=== PATIENT | female | born 1940 | race Caucasian/White ===

== ENCOUNTER 2017-05-04 09:11 | Emergency (ER) | payer BC, MEDICARE, SELFPAY ==
[2017-05-04 09:30] VITALS: BP 185/67; PULSE 69; RESP 20; TEMP 37; O2SAT 95; BMI 38.3
--- NOTE | 2017-05-04 09:37 | HMH.EDUTC ---
[facility] [place] Clinical Impression: Proteinuria Qualifiers: Proteinuria type: other Qualified Code(s): R80.8 - Other proteinuria Hematuria Qualifiers: Hematuria type: other microscopic Qualified Code(s): R31.29 - Other microscopic hematuria; R31.2 - Other microscopic hematuria Disposition: Still a Patient Condition on Discharge: Good Referrals: [facility] [Primary Care Provider] - Gloria Leo APRN [Nurse Practitioner] - Time of Disposition: 09:52 (Sent to ER for further evaluation) Medical Decision Making - Yordan Inquiry Pt receiving controlled substance: No Vital Signs: 05/04/17 09:30 Temperature 98.6 F Temperature Source Temporal Artery Scan Pulse Rate [Right Radial] 69 Respiratory Rate 20 Blood Pressure [Right Arm] 185/67 Blood Pressure Mean [Right Arm] 106 Blood Pressure Source [Right Arm] Automatic Cuff Blood Pressure Position [Right Arm] Sitting 02 Sat by Pulse Oximetry 95 Oxygen Delivery Method Room Air - Lab Data Lab results reviewed: Yes: I reviewed the patient's lab results. Lab Results 05/04/17 09:37: Urine Color Dark yellow, Urine Appearance Clear, Urine pH 7.0, Ur Specific [place] 1.020, Urine Protein 1+, Urine Glucose (UA) Negative, Urine Ketones Negative, Urine Blood Trace, Urine Nitrate Negative, Urine Bilirubin Negative, Urine Urobilinogen 0.2, Ur Leukocyte Esterase Negative [facility] [place] - General Stated complaint: Back Pain Time Seen by Provider: 05/04/17 09:30 Mode of Arrival: Family Vehicle Source of Information: Patient Limitations: No Limitations Description of Symptoms (Recalled from Triage Doc. by RN): PT STATES HER RIGHT LOWER BACK HAS BEEN HURTING SINCE LAST WEEK BUT THE PAIN IS WORSE NOW. PT DENIES INJURY AND STATES SHE IS NOT HAVING ANY PROBLEMS URINATING. HEENT Symptoms (Recalled from RN notes): No Resp Symptoms (Recalled from RN notes): No Skin Symptoms (Recalled from RN notes): No MS Symptoms (Recalled from RN notes): (RIGHT LOWER BACK PAIN) Functional Status (Recalled from RN notes): NA - History of Present Illness Provider Complaint: Patient states she began having right sided back pain on 04/28/17. She was at work when pain occurred. No injury or inciting event. She states pain has gotten progressively worse throughout the week. Last night she could not get comfortable and could not sleep. Got up multiple times to urinate, but only small volumes. No dysuria. No fever. Some nausea yesterday, no vomiting. No history of stones. She is diabetic, takes insulin BID. Patient denies rash. Onset (ago): day(s) (6) Location: back Radiation: flank Severity: moderate Consistency: constant Relieving factors: none Associated symptoms: nausea/vomiting Treatments prior to arrival: none - Related Data Home Medications Medication Instructions Recorded Confirmed Carvedilol [Carvedilol 25mg Tab] 25 mg PO BID 05/04/17 05/04/17 Insulin Lispro Protamin/Lispro 45 units SQ BID 05/04/17 05/04/17 [HumaLOG Mix 75/25 3mL flexpen] Lisinopril [Lisinopril 10mg Tab] 10 mg PO DAILY 05/04/17 05/04/17 PHENobarbital [Phenobarbital] 64.8 mg PO DAILY 05/04/17 05/04/17 Sitagliptin Phosphate [Januvia] 100 mg PO DAILY 05/04/17 05/04/17 Allergies Allergy/AdvReac Type Severity Reaction Status Date / Time metformin Allergy Verified 05/04/17 09:39 nickel Allergy Verified 05/04/17 09:39 - Worker's Comp Is this a Worker's Comp case?: No [facility] History I have reviewed the patient's past medical history: Yes Medical History: Reports:: Diabetes Mellitus Type 2 Denies:: Cancer, Diabetes Mellitus Type 1, MRSA Amputation: No Fractures: No - Social History Smoking Status: Never smoker Alcohol Intake: never - Psychiatric History Expresses thoughts of harming self/others: None Suicide Plan Description: No Plan ROS Obtained: Yes All systems reviewed & no additional complaints - Constitutional Constitutional: Denies fever(s), Denies malaise - Cardiovascu
[2017-05-04 09:39] LABS: Apearance,Urine Clear (Clear); Color,Urine Dark Yellow (Yellow)
[2017-05-04 09:40] LABS: Bilirubin,Urine Negative (Negative); Blood, Urine Trace (Negative); Glucose,Urine (UA) Negative (Negative); Ketones,Urine Negative (Negative); Protein,Urine 1+ (Negative)
[2017-05-04 09:41] LABS: UTC Leukocyte Esterase,Urine Negative (Negative); UTC Nitrate,Urine Negative (Negative); Urobilinogen,Urine 0.2 EU/dl (0.2)
--- NOTE | 2017-05-04 09:46 | ED_ITS ---
[facility] [place]ression: Proteinuria Qualifiers: Proteinuria type: other Qualified Code(s): R80.8 - Other proteinuria Hematuria Qualifiers: Hematuria type: other microscopic Qualified Code(s): R31.29 - Other microscopic hematuria; R31.2 - Other microscopic hematuria Disposition: Still a Patient Condition on Discharge: Good Referrals: [facility] [Primary Care Provider] - Gloria Leo APRN [Nurse Practitioner] - Time of Disposition: 09:52 (Sent to ER for further evaluation) Medical Decision Making - Yordan Inquiry Pt receiving controlled substance: No Vital Signs: 05/04/17 09:30 Temperature 98.6 F Temperature Source Temporal Artery Scan Pulse Rate [Right Radial] 69 Respiratory Rate 20 Blood Pressure [Right Arm] 185/67 Blood Pressure Mean [Right Arm] 106 Blood Pressure Source [Right Arm] Automatic Cuff Blood Pressure Position [Right Arm] Sitting 02 Sat by Pulse Oximetry 95 Oxygen Delivery Method Room Air - Lab Data Lab results reviewed: Yes: I reviewed the patient's lab results. Lab Results 05/04/17 09:37: Urine Color Dark yellow, Urine Appearance Clear, Urine pH 7.0, Ur Specific [place] 1.020, Urine Protein 1+, Urine Glucose (UA) Negative, Urine Ketones Negative, Urine Blood Trace, Urine Nitrate Negative, Urine Bilirubin Negative, Urine Urobilinogen 0.2, Ur Leukocyte Esterase Negative [facility] [place] General Stated complaint: Back Pain Time Seen by Provider: 05/04/17 09:30 Mode of Arrival: Family Vehicle Source of Information: Patient Limitations: No Limitations Description of Symptoms (Recalled from Triage Doc. by RN): PT STATES HER RIGHT LOWER BACK HAS BEEN HURTING SINCE LAST WEEK BUT THE PAIN IS WORSE NOW. PT DENIES INJURY AND STATES SHE IS NOT HAVING ANY PROBLEMS URINATING. HEENT Symptoms (Recalled from RN notes): No Resp Symptoms (Recalled from RN notes): No Skin Symptoms (Recalled from RN notes): No MS Symptoms (Recalled from RN notes): (RIGHT LOWER BACK PAIN) Functional Status (Recalled from RN notes): NA - History of Present Illness Provider Complaint: Patient states she began having right sided back pain on 02/03. She was at work when pain occurred. No injury or inciting event. She states pain has gotten progressively worse throughout the week. Last night she could not get comfortable and could not sleep. Got up multiple times to urinate , but only small volumes. No dysuria. No fever. Some nausea yesterday, no vomiting. No history of stones. She is diabetic, takes insulin BID. Patient denies rash. Onset (ago): day(s) (6) Location: back Radiation: flank Severity: moderate Consistency: constant Relieving factors: none Associated symptoms: nausea/vomiting Treatments prior to arrival: none - Related Data Home Medications Medication Instructions Recorded Confirmed Carvedilol [Carvedilol 25mg Tab] 25 mg PO BID 05/04/17 05/04/17 Insulin Lispro Protamin/Lispro 45 units SQ BID 05/04/17 05/04/17 [HumaLOG Mix 75/25 3mL flexpen] Lisinopril [Lisinopril 10mg Tab] 10 mg PO DAILY 05/04/17 05/04/17 PHENobarbital [Phenobarbital] 64.8 mg PO DAILY 05/04/17 05/04/17 Sitagliptin Phosphate [Januvia] 100 mg PO DAILY 05/04/17 05/04/17 Allergies Allergy/AdvReac Type Severity Reaction Status Date / Time metformin Allergy Verified 05/04/17 09:39 nickel Allergy Verified 05/04/17 09:39
[2017-05-04 09:54] VITALS: BP 200/109; PULSE 72; RESP 18; TEMP 36.4; O2SAT 94; BMI 38.3
--- NOTE | 2017-05-04 10:04 | CT_ITS ---
CT abdomen pelvis wo con COMPARISON: CT scan abdomen pelvis 05/30/2015 HISTORY: Right flank pain TECHNIQUE: Multiple axial scans obtained from hemidiaphragms the pelvic floor and were performed without IV or oral contrast. Sagittal and coronal reformats were evaluated as well. FINDINGS: The lower lung [place] are clear. The liver spleen stomach pancreas and gallbladder appear grossly normal. 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 The left adrenal gland is normal. The kidneys are normal size and there are no calculi and is no obstructive uropathy. There is an extrarenal pelvis of the left kidney which was noted previously. There is a small umbilical hernia containing fat only. The small bowel appears normal. The appendix is normal caliber and retrocecal in location. There is moderate amount stool in the cecum and ascending colon. There is mild diverticulosis of the upper ascending colon and hepatic flexure with no obvious evidence of diverticulitis. There is diffuse diverticulosis of the sigmoid colon without evidence of diverticulitis. The uterus is normal in size and in the midline. Urinary bladder is partially decompressed. Is no free fluid in the pelvis. There are mild degenerative changes of lumbar spine. There is prominent arteriosclerotic calcification of the abdominal aorta but is no aneurysm. IMPRESSION: No acute abdominal or pelvic pathology identified, stable fatty right adrenal mass as noted. Moderate diffuse diverticulosis of the sigmoid colon which was noted previously without evidence of diverticulitis in addition to moderate diverticulosis of the hepatic flexure.
--- NOTE | 2017-05-04 10:06 | HMH.EDGENADL ---
ED Disposition Clinical Impression: Hypertension, Diabetes, Diverticulitis Proteinuria Qualifiers: Proteinuria type: other Qualified Code(s): R80.8 - Other proteinuria Hematuria Qualifiers: Hematuria type: other microscopic Qualified Code(s): R31.29 - Other microscopic hematuria Disposition: Still a Patient Condition on Discharge: Fair Additional Instructions: 1- soft diet , more green leafy vegetable diet. 2- diabetic diet and stricter diabetes control. 3- start abx as soonas possible. 4- observe for fever, vomiting or worse pain to return. 5- follow up with Dr. Steiner;s office in 1-2 days. Prescriptions: Ciprofloxacin HCl [Cipro 250mg Tab] 250 mg PO BID #14 tab metroNIDAZOLE [Flagyl] 500 mg PO Q8 1 Days #21 tab Referrals: [facility] [Primary Care Provider] - Gloria Leo APRN [Nurse Practitioner] - - Critical Care Critical Care Time: No Attestation: On 05/04/17, the high probability of a clinically significant, sudden or life threatening deterioration of the following system(s) required my full and direct attention, intervention and personal management. The time I documented below is in addition to time spent performing reported procedures but includes the following listed in this critical care notation. Medical Decision Making - Yordan Inquiry Pt receiving controlled substance: No Yordan was queried for this patient: No Vital Signs: 05/04/17 09:30 05/04/17 09:54 Temperature 98.6 F 97.6 F Temperature Source Temporal Artery Scan Oral Pulse Rate [Right Radial] 69 72 Respiratory Rate 20 18 Blood Pressure [Right Arm] 185/67 200/109 Blood Pressure Mean [Right Arm] 106 139 Blood Pressure Source [Right Arm] Automatic Cuff Automatic Cuff Blood Pressure Position [Right Arm] Sitting Sitting 02 Sat by Pulse Oximetry 95 94 L Oxygen Delivery Method Room Air Room Air - Lab Data Lab Results 05/04/17 09:34: Urine Color Yellow, Urine Appearance Clear, Urine pH 7.0, Ur Specific [place] 1.020, Urine Protein Trace, Urine Glucose (UA) Negative, Urine Ketones Negative, Urine Blood Trace-l, Urine Nitrate Negative, Urine Bilirubin Negative, Urine Urobilinogen 0.2, Ur Leukocyte Esterase Negative, Urine WBC 3-5, Ur Squamous Epith Cells 5-10, Urine Bacteria 3+, Urine Mucus 2+ 05/04/17 09:37: Urine Color Dark yellow, Urine Appearance Clear, Urine pH 7.0, Ur Specific [place] 1.020, Urine Protein 1+, Urine Glucose (UA) Negative, Urine Ketones Negative, Urine Blood Trace, Urine Nitrate Negative, Urine Bilirubin Negative, Urine Urobilinogen 0.2, Ur Leukocyte Esterase Negative 05/04/17 10:15: WBC 8.5, RBC 4.83, Hgb 13.5, Hct 41.9, MCV 86.9, MCH 28.0, MCHC 32.2, RDW 13.6, Plt Count 130 L, MPV 8.3, Neut % (Auto) 66.7, Lymph % (Auto) 16.2, [place] % (Auto) 16.5 H, Eos % (Auto) 0.5, Baso % (Auto) 0.1, Neut # (Auto) 5.7, Lymph # (Auto) 1.4, [place] # (Auto) 1.4 H, Eos # (Auto) 0.0, Baso # (Auto) 0.0 05/04/17 10:15: Sodium 138, Potassium 4.1, Chloride 102, Carbon Dioxide 30, Anion Gap 10.1, BUN 8, Creatinine 0.72, Estimated Creat Clear 84, Estimated GFR 79, Est GFR ( Amer) 95, Glucose 237 H, Calcium 8.6, Total Bilirubin 0.3, AST 6 L, ALT 17, Alkaline Phosphatase 124 H, Total Protein 7.7, Albumin 3.8, Globulin 3.9 H, Albumin/Globulin Ratio 1.0 L Result diagrams: 05/04/17 10:15 05/04/17 10:15 Orders (Tests/Meds): ED MEDICATIONS Generic Name Dose Route Start Last Admin Trade Name Freq PRN Reason Stop Dose Admin Metronidazole 100 mls @ 100 mls/hr 05/04/17 11:58 05/04/17 12:06 Flagyl 500mg/100ml Ivpb IV 05/04/17 12:57 100 mls/hr ONCE ONE Administration Protocol Discontinued Medications Generic Name Dose Route Start Last Admin Trade Name Freq PRN Reason Stop Dose Admin Sodium Chloride 1,000 mls @ 999 mls/hr 05/04/17 10:15 05/04/17 10:19 Sod Chlor 0.9% 1000ml Bag IV 05/04/17 11:15 999 mls/hr .Q1H1M ARTEMIO Administration Ketorolac Tromethamine 30 mg 05/04/17 12:01 0
--- NOTE | 2017-05-04 10:09 | ED_ITS ---
ED Disposition Clinical Impression: Hypertension, Diabetes, Diverticulitis Proteinuria Qualifiers: Proteinuria type: other Qualified Code(s): R80.8 - Other proteinuria Hematuria Qualifiers: Hematuria type: other microscopic Qualified Code(s): R31.29 - Other microscopic hematuria Disposition: Still a Patient Condition on Discharge: Fair Additional Instructions: 1- soft diet , more green leafy vegetable diet. 2- diabetic diet and stricter diabetes control. 3- start abx as soonas possible. 4- observe for fever, vomiting or worse pain to return. 5- follow up with Dr. Steiner;s office in 1-2 days. Prescriptions: Ciprofloxacin HCl [Cipro 250mg Tab] 250 mg PO BID #14 tab metroNIDAZOLE [Flagyl] 500 mg PO Q8 1 Days #21 tab Referrals: [facility] [Primary Care Provider] - Gloria Leo APRN [Nurse Practitioner] - - Critical Care Critical Care Time: No Attestation: On 05/04/17, the high probability of a clinically significant, sudden or life threatening deterioration of the following system(s) required my full and direct attention, intervention and personal management. The time I documented below is in addition to time spent performing reported procedures but includes the following listed in this critical care notation. Medical Decision Making - Yordan Inquiry Pt receiving controlled substance: No Yordan was queried for this patient: No Vital Signs: 05/04/17 09:30 05/04/17 09:54 Temperature 98.6 F 97.6 F Temperature Source Temporal Artery Scan Oral Pulse Rate [Right Radial] 69 72 Respiratory Rate 20 18 Blood Pressure [Right Arm] 185/67 200/109 Blood Pressure Mean [Right Arm] 106 139 Blood Pressure Source [Right Arm] Automatic Cuff Automatic Cuff Blood Pressure Position [Right Arm] Sitting Sitting 02 Sat by Pulse Oximetry 95 94 L Oxygen Delivery Method Room Air Room Air - Lab Data Lab Results 05/04/17 09:34: Urine Color Yellow, Urine Appearance Clear, Urine pH 7.0, Ur Specific [place] 1.020, Urine Protein Trace, Urine Glucose (UA) Negative, Urine Ketones Negative, Urine Blood Trace-l, Urine Nitrate Negative, Urine Bilirubin Negative, Urine Urobilinogen 0.2, Ur Leukocyte Esterase Negative, Urine WBC 3-5 , Ur Squamous Epith Cells 5-10, Urine Bacteria 3+, Urine Mucus 2+ 05/04/17 09:37: Urine Color Dark yellow, Urine Appearance Clear, Urine pH 7.0, Ur Specific [place] 1.020, Urine Protein 1+, Urine Glucose (UA) Negative, Urine Ketones Negative, Urine Blood Trace, Urine Nitrate Negative, Urine Bilirubin Negative, Urine Urobilinogen 0.2, Ur Leukocyte Esterase Negative 05/04/17 10:15: WBC 8.5, RBC 4.83, Hgb 13.5, Hct 41.9, MCV 86.9, MCH 28.0, MCHC 32.2, RDW 13.6, Plt Count 130 L, MPV 8.3, Neut % (Auto) 66.7, Lymph % (Auto) 16.2, [place] % (Auto) 16.5 H, Eos % (Auto) 0.5, Baso % (Auto) 0.1, Neut # (Auto) 5.7, Lymph # (Auto) 1.4, [place] # (Auto) 1.4 H, Eos # (Auto) 0.0, Baso # (Auto) 0.0 05/04/17 10:15: Sodium 138, Potassium 4.1, Chloride 102, Carbon Dioxide 30, Anion Gap 10.1, BUN 8, Creatinine 0.72, Estimated Creat Clear 84, Estimated GFR 79, Est GFR ( Amer) 95, Glucose 237 H, Calcium 8.6, Total Bilirubin 0.3, AST 6 L, ALT 17, Alkaline Phosphatase 124 H, Total Protein 7.7, Albumin 3.8, Globulin 3.9 H, Albumin/Globulin Ratio 1.0 L Result diagrams: 05/04/17 10:15 05/04/17 10:15 Orders (Tests/Meds): ED MEDICATIONS Generic Name Dose Route Start Last Admin Trade Name Josefina PRN Reas
[2017-05-04 10:12] LABS: Microscopic, Urine URINE MICROSCOPIC (MICROSCOPIC)
[2017-05-04 10:13] LABS: Appearance,Urine CLEAR (Clear); Bilirubin,Urine Negative (Negative); Blood, Urine TRACE-L (Negative); Color,Urine YELLOW (Yellow); Glucose,Urine (UA) Negative (Negative); Ketones,Urine Negative (Negative); Leukocyte Esterase,Urine Negative (Negative); Nitrate,Urine Negative (Negative); Protein,Urine TRACE (Negative); Urobilinogen,Urine 0.2 EU/dl (0.2)
[2017-05-04 10:21] LABS: Bacteria,Urine 3+ /lpf; Mucus,Urine 2+ /lpf
[2017-05-04 10:25] LABS: Basophils % 0.1 % (0.1-2.0); Eosinophils % 0.5 % (0.1-12.0); Hematocrit 41.9 % (37.0-47.0); Hemoglobin 13.5 g/dL (12.2-16.2); Lymphocytes # 1.4 K/mm3 (0.7-4.5); Lymphocytes % 16.2 K/mm3 (10-50); Mean Corpuscular HGB Conc 32.2 g/dL (31.8-35.4); Mean Corpuscular Volume 86.9 fl (81-99); Mean Platelet Volume 8.3 fl (7.4-10.4); Monocytes # 1.4 K/mm3 (0.1-1.0); Monocytes % 16.5 % (1.7-9.3); Neutrophils # 5.7 K/mm3 (1.8-7.8); Neutrophils % 66.7 % (37.0-80.0); Platelet Count 130 K/mm3 (142-424); Red Blood Count 4.83 M/mm3 (4.20-5.40); Red Cell Distribution Width 13.6 % (11.5-17.5); White Blood Count 8.5 K/mm3 (4.8-10.8)
[2017-05-04 10:35] LABS: Alanine Aminotransferase 17 U/L (12-78); Albumin Level 3.8 gm/dL (3.4-5.0); Alkaline Phosphatase 124 U/L (46-116); Anion Gap 10.1 mEq/L (5-15); Aspartate Amino Transferase 6 U/L (15-37); Bilirubin,Total 0.3 mg/dL (0.2-1.0); Blood Urea Nitrogen 8 mg/dL (7-18); Calcium 8.6 mg/dL (8.5-10.1); Carbon Dioxide 30 mmol/L (21.0-32.0); Chloride 102 mmol/L (98-107); Creatinine Clearance Estimated 84 mL/min (0-300); Creatinine,Serum 0.72 mg/dL (0.55-1.02); Estimated Glomerular Filt Rate 79 ml/min (>60); GFR (African American) 95 ML/MIN (>60); Globulin 3.9 gm/dl (1.3-3.2); Glucose 237 mg/dL (74-106); Potassium 4.1 mmoL/L (3.5-5.1); Sodium 138 mmol/L (136-145); Total Protein,Serum 7.7 gm/dL (6.4-8.2)
[2017-05-04 12:10] VITALS: BP 182/66; PULSE 64; RESP 18; O2SAT 95
[2017-05-04 14:16] VITALS: BP 182/92; PULSE 68; RESP 20; TEMP 36.4; O2SAT 93
== END 2017-05-04 14:16 | disposition home or self-care (01) ==
LOC: UTC 09:22 → ER 09:53
PROVIDERS: Physician Assistant; Emergency Provider Emergency Medicine; Family Provider Internal Medicine Adolescent Medicine; PCP Internal Medicine Adolescent Medicine
DX: K57.53 Diverticulitis of both small and large intestine without perforation or abscess with bleeding (principal); R80.8 Other proteinuria; R31.29 Other microscopic hematuria; E11.65 Type 2 diabetes mellitus with hyperglycemia; Z79.4 Long term (current) use of insulin; I10 Essential (primary) hypertension; Z88.8 Allergy status to other drugs, medicaments and biological substances
CPT/HCPCS: 74176; 80053; 81001; 81003; 85025; 87086; 96365; 96367; 96375; 99284; J2405

== ENCOUNTER → 2022-02-08 13:43 | Outpatient (CLI) | payer BC, MEDICARE, SELFPAY ==
[2022-02-08 14:38] LABS: Chloride 105 mmol/L (98-107)
[2022-02-08 14:39] LABS: Potassium 4.1 mmoL/L (3.5-5.1); Sodium 138 mmol/L (136-145)
[2022-02-08 14:41] LABS: Blood Urea Nitrogen 12 mg/dl (7-17); Estimated Glomerular Filt Rate 69 ml/min (>60); GFR (African American) 83 ML/MIN (>60)
[2022-02-08 14:42] LABS: Anion Gap 9.1 mEq/L (5-15); Calcium 8.8 mg/dl (8.4-10.2); Carbon Dioxide 28 mmol/L (22.0-30.0)
[2022-02-08 14:48] LABS: Basophils % 0.4 % (0.1-2.0); Eosinophils # 0.1 K/mm3 (0.0-0.4); Eosinophils % 0.9 % (0.1-12.0); Hematocrit 27.9 % (37.0-47.0); Lymphocytes # 1.4 K/mm3 (0.7-4.5); Lymphocytes % 17.3 % (10-50); Mean Corpuscular HGB Conc 32.2 g/dL (31.8-35.4); Mean Corpuscular Hemoglobin 28.3 pg (27.0-31.2); Mean Platelet Volume 8.7 fl (7.4-10.4); Monocytes # 2.7 K/mm3 (0.1-1.0); Monocytes % 35.2 % (1.7-9.3); Neutrophils # 3.6 K/mm3 (1.8-7.8); Neutrophils % 46.3 % (37.0-80.0); Platelet Count 142 K/mm3 (142-424); Red Blood Count 3.18 M/mm3 (4.20-5.40); Red Cell Distribution Width 15.9 % (11.5-17.5); White Blood Count 7.8 K/mm3 (4.8-10.8)
[2022-02-08 14:51] LABS: MANUAL DIFFERENTIAL MANUAL DIFFERENTIAL (MANUAL DIFF)
[2022-02-08 15:00] LABS: Glucose 43 mg/dl (74-100)
[2022-02-08 15:28] LABS: Eosinophils % 1 % (0-3); Lymphocytes % 21 % (10-50); Monocytes % 24 % (2-9); Neutrophils % 54 % (42-76); Total Cells Counted 100
[2022-02-08 15:29] LABS: Platelet Estimate Slight Decrease; RBC Morphology Normal
== END ==
PROVIDERS: PCP Internal Medicine Adolescent Medicine; Visit Provider Nurse Practitioner Family
DX: R60.0 Localized edema (principal); R41.0 Disorientation, unspecified; I10 Essential (primary) hypertension
CPT/HCPCS: 80048; 85007; 85025

== ENCOUNTER → 2022-05-09 10:34 | Outpatient (CLI) | payer BC, MEDICARE, SELFPAY ==
[2022-05-09 11:06] LABS: Basophils % 0.5 % (0.1-2.0); Eosinophils # 0.1 K/mm3 (0.0-0.4); Eosinophils % 1.4 % (0.1-12.0); Hematocrit 34.1 % (37.0-47.0); Hemoglobin 10.3 g/dL (12.2-16.2); Lymphocytes # 0.9 K/mm3 (0.7-4.5); Mean Corpuscular HGB Conc 30.3 g/dL (31.8-35.4); Mean Corpuscular Volume 92.4 fl (81-99); Mean Platelet Volume 8.4 fl (7.4-10.4); Monocytes # 1.9 K/mm3 (0.1-1.0); Monocytes % 28.5 % (1.7-9.3); Neutrophils # 3.7 K/mm3 (1.8-7.8); Neutrophils % 55.5 % (37.0-80.0); Platelet Count 140 K/mm3 (142-424); Red Blood Count 3.69 M/mm3 (4.20-5.40); Red Cell Distribution Width 15.7 % (11.5-17.5); White Blood Count 6.6 K/mm3 (4.8-10.8)
[2022-05-09 11:10] LABS: MANUAL DIFFERENTIAL MANUAL DIFFERENTIAL (MANUAL DIFF)
[2022-05-09 11:45] LABS: Lymphocytes % 25 % (10-50); Monocytes % 11 % (2-9); Neutrophils % 64 % (42-76); Platelet Estimate Slight Decrease; RBC Morphology Normal; Total Cells Counted 100
[2022-05-09 12:07] LABS: Alanine Aminotransferase 13 U/L (12-78); Albumin/Globulin Ratio 1.5 (1.1-1.8); Alkaline Phosphatase 108 U/L (38-126); Anion Gap 8.3 mEq/L (5-15); Aspartate Amino Transferase 19 U/L (14-36); Bilirubin,Total 0.5 mg/dl (0.2-1.3); Blood Urea Nitrogen 15 mg/dl (7-17); Calcium 8.4 mg/dl (8.4-10.2); Carbon Dioxide 37 mmol/L (22.0-30.0); Chloride 100 mmol/L (98-107); Estimated Glomerular Filt Rate 96 ml/min (>60); GFR (African American) 116 ML/MIN (>60); Globulin 2.6 g/dL (1.3-3.2); Glucose 75 mg/dl (74-100); Potassium 4.3 mmoL/L (3.5-5.1); Sodium 141 mmol/L (136-145); Total Protein,Serum 6.6 g/dl (6.3-8.2)
[2022-05-09 12:30] LABS: Hemoglobin A1C 4.6 % (4.0-6.0)
== END ==
PROVIDERS: PCP Nurse Practitioner Family; Visit Provider Nurse Practitioner Family
DX: I10 Essential (primary) hypertension (principal); E11.9 Type 2 diabetes mellitus without complications; Z79.4 Long term (current) use of insulin
CPT/HCPCS: 80053; 80184; 83036; 85007; 85025

== ENCOUNTER 2023-02-04 20:13 | Emergency (ER) | payer MEDICARE, BC, SELFPAY ==
--- NOTE | 2023-02-04 | ECG_ITS ---
APPROVED REPORT Exam: Resting ECG HR:67 bpm ECG Measurements Heart Rate 67 AXES QRSd 162 QRS 261 QT 407 T 79 QTc 422 Conclusion ATRIAL FIBRILLATION RIGHT AXIS DEVIATION [QRS AXIS > 100] RIGHT BUNDLE BRANCH BLOCK [120+ ms QRS DURATION, UPRIGHT V1, 40+ ms S IN I/aVL/V4/V5/V6] MODERATE VOLTAGE CRITERIA FOR LVH, CONSIDER NORMAL VARIANT [MEETS CRITERIA IN ONE OF: R(aVL), S(V1), R(V5), R(V5/V6)+S(V1)] POSSIBLE SEPTAL MYOCARDIAL INFARCTION , OF INDETERMINATE AGE [30 ms Q WAVE IN V1/V2] ABNORMAL ECG UNCONFIRMED REPORT Electronically signed by : Rafita Steiner MD 02/05/2023 18:40:11
[2023-02-04 20:13] VITALS: BP 0/0; PULSE 0; RESP 12; O2SAT 100; BMI 45.1
[2023-02-04 20:15] VITALS: BMI 45.1
--- NOTE | 2023-02-04 20:29 | XR_ITS ---
PROCEDURE INFORMATION: Exam: XR Chest Exam date and time: 02/04/2023 8:27 PM Age: 82 years old Clinical indication: Device placement; Ett placement (vent status); Additional info: Post code- ett, ng placement TECHNIQUE: Imaging protocol: Radiologic exam of the chest. Views: 1 view. COMPARISON: CR [id number] XR ribs RT min 3V w CXR1V 12/09/2017 7:31 PM FINDINGS: Tubes, catheters and devices: ET tube is below the thoracic inlet and above the mu. NG tube is in the stomach. Lungs: No acute cardiopulmonary findings. Pleural spaces: Unremarkable. No pleural effusion. No pneumothorax. Heart/Mediastinum: Unremarkable. No cardiomegaly. Bones/joints: Unremarkable. IMPRESSION: 1. ET tube is below the thoracic inlet and above the mu. 2. No acute cardiopulmonary findings.
[2023-02-04 20:34] LABS: ABG Base Excess -30.3 mmol/L (-2.4-2.3); ABG HCO3 3.9 mmhg (22.0-26.0); ABG Oxygen Saturation 99 % (90-100); ABG PCO2 24.1 mmhg (35.0-45.0); ABG PO2 233.6 mmhg (80-100); ABG TCO2 4.6 mmhg (23-27)
[2023-02-04 20:37] LABS: Basophils # 0.3 K/mm3 (0-0.2); Eosinophils % 0.1 % (0.1-12.0); Hematocrit 48.5 % (37.0-47.0); Hemoglobin 14.5 g/dL (12.2-16.2); Lymphocytes # 3.7 K/mm3 (0.7-4.5); Lymphocytes % 14.5 % (10-50); Mean Corpuscular HGB Conc 29.8 g/dL (31.8-35.4); Mean Corpuscular Hemoglobin 28.1 pg (27.0-31.2); Mean Corpuscular Volume 94.2 fl (81-99); Mean Platelet Volume 9.8 fl (7.4-10.4); Monocytes % 15.3 % (1.7-9.3); Neutrophils # 17.9 K/mm3 (1.8-7.8); Neutrophils % 69.2 % (37.0-80.0); Platelet Count 112 K/mm3 (142-424); Red Blood Count 5.16 M/mm3 (4.20-5.40); Red Cell Distribution Width 13.2 % (11.5-17.5); White Blood Count 25.9 K/mm3 (4.8-10.8)
[2023-02-04 20:40] LABS: MANUAL DIFFERENTIAL MANUAL DIFFERENTIAL (MANUAL DIFF)
[2023-02-04 20:42] LABS: Potassium 5.9 mmoL/L (3.5-5.1); Sodium 136 mmol/L (136-145)
[2023-02-04 20:45] LABS: Albumin/Globulin Ratio 1.3 (1.1-1.8); Blood Urea Nitrogen 34 mg/dl (7-17); Creatinine Clearance Estimated 12 mL/min (50-200); Estimated Glomerular Filt Rate 14 ml/min (>60); GFR (African American) 17 ML/MIN (>60)
[2023-02-04 20:55] LABS: Chloride 100 mmol/L (98-107); Eosinophils % 1 % (0-3); Hypochromasia 2+; Lymphocytes % 31 % (10-50); Monocytes % 7 % (2-9); NT Pro Brain Natriuretic Pep. 16900 pg/mL (0-450); Neutrophils % 61 % (42-76); Nucleated Red Blood Cells 1; Platelet Estimate Slight Decrease; Total Cells Counted 100
[2023-02-04 20:58] LABS: Alkaline Phosphatase 123 U/L (38-126); Bilirubin,Total 0.8 mg/dl (0.2-1.3)
[2023-02-04 21:04] LABS: Anion Gap 36.9 mEq/L (5-15)
[2023-02-04 21:05] LABS: Calcium 12.9 mg/dl (8.4-10.2); Carbon Dioxide < 5 mmol/L (22.0-30.0); Glucose 614 mg/dl (74-100); Troponin I 3.39 ng/ml (0.00-0.034)
[2023-02-04 21:06] LABS: Alanine Aminotransferase 1858 U/L (12-78)
--- NOTE | 2023-02-04 21:06 | PC.NURSE ---
Dr. Cornejo notified of the following critical labs: Troponin 3.39 Glucose 614 CO2<5 Calcium 12.9 NNO.
[2023-02-04 21:08] LABS: Lactic Acid 17.3 mmol/L (0.7-2.1)
--- NOTE | 2023-02-04 21:12 | PC.NURSE ---
MD Cornejo notified of critical lab value Lactate 17.3
[2023-02-04 21:19] LABS: ABG PH 6.82 mmol/L (7.35-7.45); Oxygen 100 %; Source AL
[2023-02-04 21:21] LABS: Aspartate Amino Transferase 2916 U/L (14-36)
--- NOTE | 2023-02-04 21:43 | PC.NURSE ---
Code Blue Note: 2003: Arrived 2005: PEA. Epi IVP 2006: FSBS Hi 2007: PEA. Epi IVP. 2g CaChloride, Blue I/O to left tibial plateau 2008: +Pulse. Wide complex idioventricular rhythm HR 77, O2 100% ambu bag, EtCo2 29 2009- Epi IVP per Dr. Cornejo to support BP 2012: NiBP 188/83, O2 100% ambu bag, EtCo2 28, HR 70 2013: NiBP 178/74, O2 100% ambu bag, EtCo2 29, HR 78 2020: Arterial Line placed by Dr. Cornejo. Labs obtained 2027: Epi IVP per Dr. Cornejo to support BP 2028: Norepinephrine gtt started at 30mcg/min per Dr. Cornejo Arterial BP 61/38; 16fr NG to right nare @65cm 2032: Pulse lost, Epi IVP, Compressions started back 2034: PEA, Epi IVP 2036: +Pulse. Wide complex idioventricular rhythm HR 86, O2 100%, EtCo2 32 2037: Pulse lost, Epi IVP, Compressions started back 2039: +Pulse> Wide complex idioventricular rhythm O2 100%, HR 78, Arterial BP 213/65, EtCo2 29 2041: Norepi gtt titrated to 15mcg/min per Dr. Cornejo 2042: Arterial BP 173/55, HR 65, O2 96%. Family at bedside speaking with Dr. Cornejo has decided to make patient DNR. Dr. Cornejo instructing code team to not begin compressions if pulse is lost. 2044: Arterial BP 88/54. Norepi gtt titrated to 20mcg/min per Dr. Cornejo 2049: Epi IVP per Dr. Cornejo to support BP 2050: Insulin gtt mixed and at bedside, but family instructing staff to not start. Arterial BP 118/97, HR 66, EtCo27 2058: Arterial BP 55/33, HR 52, O2 100%, EtCo2 23. Norepi gtt and LR bolus stopped per family and Dr. Cornejo 8mg Morphine IVP given per Dr. Cornejo for patient comfort. 2116: Time of called by Dr. Cornejo 2113: DORENE notified of patient . Spoke to [facility] referral ID [id number] and ruled out for donation 2129: Emr Trainer, Gloria Ramirez notified
--- NOTE | 2023-02-04 22:25 | HMH.EDGENADL ---
Discharge Plan Disposition Patient Disposition: Date/Time: 02/04/23 21:17 Clinical Impressions Clinical Impression: Cardiac arrest, Acute hypoxemic respiratory failure, Acidosis, lactic, Hyperglycemia, Elevated troponin, Shock liver Discharge ED Provider: Janett Cornejo General Adult HPI General Chief complaint: Cardiac Arrest/CPR Stated complaint: Code Time Seen by Provider: 02/04/23 20:32 Mode of Arrival: EMS Source of Information: EMS Limitations: Altered Mental Status Description of Symptoms (Recalled from ER Triage Doc. by RN): 82 F comes from home active Code. EMS arrived to home approximately 1926 to unresponsive patient. ACLS protocol initiated. 500mL NS bolus, 4 Epi, FSBS Hi. Medical Biller Coder intubated with 7.0 ett. 20g RAC. Patient had no pulse obtained in route. Arrived here with previously noted interventions. Family in route. History of Present Illness HPI narrative: This patient is an 82-year-old female with a history of hypertension, diabetes, and hyperlipidemia presenting to the emergency department for evaluation as a cardiac arrest. According to EMS, they were called to the home of the patient who was unresponsive with foaming at the mouth. Patient was noted to be pulseless and apneic upon their arrival with asystole on the monitor. They intubated the patient with a 7.0 ETT and placed a 20g IV. They checked a fingerstick blood glucose, which read high. ACLS was carried out and patient had been given 4 doses of IV epinephrine prior to arrival. They note PEA on the monitor each time. Patient is unable to contribute to history given situation. Related Data Home Medications Medication Instructions Recorded Confirmed carvedilol 25 mg tablet 25 mg PO BID BLOOD PRESSURE 05/04/17 11/29/19 lisinopril 10 mg tablet 10 mg PO DAILY BLOOD PRESSURE 05/04/17 11/29/19 gabapentin 100 mg capsule 100 mg PO 03/09/19 11/29/19 insulin lispro protamine-lispro 40 unit SQ BID Diabetes 03/09/19 11/29/19 100 unit/mL (75-25) subcutaneous pen phenobarbital 64.8 mg tablet 64.8 mg PO BID SEIZURES 03/09/19 11/29/19 rosuvastatin 10 mg tablet 10 mg PO 03/09/19 11/29/19 Previous Rx's Medication Instructions Recorded urea 40 % topical cream 1 applic topical BID 30 days #28 11/29/19 grams Allergies Allergy/AdvReac Type Severity Reaction Status Date / Time Sulfa (Sulfonamide Allergy Unknown Verified 11/29/19 08:19 Antibiotics) metformin Allergy Verified 11/29/19 08:19 nickel Allergy Verified 11/29/19 08:19 [facility] Disclaimer: The information contained in this section may have been updated after the patient was seen, as this information can be updated by other users. Social History Smoking Status: Unknown if ever smoked alcohol intake: never current occupational status: employed Travel in the last 8 weeks: None ROS Obtained: Yes unobtainable due to endotracheal tube Physical Exam General General appearance: obese and other (Unresponsive, ET tube in place, CPR ongoing) Head Head exam: atraumatic and normocephalic Eye Eye exam: Present other (Pupils 4 mm and nonreactive bilaterally) ENT ENT exam: Present mucous membranes dry and other (ET tube in place) Neck Neck exam: Present normal inspection Chest Chest inspection: Present other (Chest compressions ongoing with petechia on the chest) Respiratory Respiratory exam: Present other (Mechanical breath sounds heard bilaterally with assisted ventilation) Cardiovascular Cardiovascular exam: Present other (Pulseless upon arrival with asystole on monitor) Abdominal Exam Abdominal exam: Present soft Extremities Exam Extremities exam: Present edema and other (Significant edema to the left upper extremity with blistering, palpable crepitus, and significant bruising. No other obvious deformities noted) Neurological Exam Neurological exam: Present other (GCS 3 T. No reflexes or purposeful mov
[2023-02-04 22:39] VITALS: BP 0/0; PULSE 0; RESP 0; TEMP -17.7; TEMP 0; O2SAT 0
--- NOTE | 2023-02-05 00:18 | P.DN_ITS ---
Pronouncement Note Date and Time of Date of : 02/04/23 Time of : 21:17 PCOD Preliminary cause of : Diabetic ketoacidosis Contributing Factors (1) Acute respiratory failure with hypoxia and hypercapnia: Additional Data Confirmation of : no pulse, no respirations, no heart sounds and pupils fixed and dilated Family: at bedside Was code activated?: No Autopsy requested?: No examiner of currency notified?: Yes Organ bank notified?: Yes Advance directives: Yes (Patient reportedly has DNR we were notified of after family arrived.)
[2023-02-06 11:56] LABS: Peripheral Smear Review Scanned Results
== END 2023-02-04 22:39 | disposition expired ==
PROVIDERS: Emergency Provider Emergency Medicine; PCP Nurse Practitioner Family
DX: J96.01 Acute respiratory failure with hypoxia (principal); I46.9 Cardiac arrest, cause unspecified; E87.20 Acidosis, unspecified; E11.65 Type 2 diabetes mellitus with hyperglycemia; R77.8 Other specified abnormalities of plasma proteins
CPT/HCPCS: 71045; 80053; 82803; 83605; 83880; 84484; 85007; 85025; 92950; 93005; 96361; 96374; 96375; 99291